=== PATIENT | female | born 1990 | race Caucasian/White ===

== ENCOUNTER 2016-09-14 15:10 | Emergency (ER) | payer OTHER ==
[2016-09-14] MEDS ORDERED: KETOROLAC 60 MG/2 ML VIAL IM STA (15:58)
[2016-09-14] MEDS ORDERED: DEXAMETHASONE 10 MG/ML VIAL PO STA (15:58)
[2016-09-14] MEDS ORDERED: DEXAMETHASONE 10 MG/ML VIAL ONE (16:02)
[2016-09-14] MEDS ORDERED: KETOROLAC 60 MG/2 ML VIAL ONE (16:02)
[2016-09-14] MEDS ORDERED: CHERRY SYRUP 10 ML UDC PO ONE (16:02)
== END 2016-09-14 16:20 | disposition home or self-care (01) ==
DX: M54.41 Lumbago with sciatica, right side (principal); G89.29 Other chronic pain
CPT/HCPCS: 96372; 99283; A9270

== ENCOUNTER 2016-09-21 19:01 | Emergency (ER) | payer OTHER ==
[2016-09-21] MEDS ORDERED: KETOROLAC 60 MG/2 ML VIAL IM STA (19:23)
[2016-09-21] MEDS ORDERED: HYDROmorphone 1 MG/ML SYRINGE IM STA (19:23)
[2016-09-21] MEDS ORDERED: KETOROLAC 60 MG/2 ML VIAL ONE (19:27)
[2016-09-21] MEDS ORDERED: HYDROmorphone 1 MG/ML SYRINGE ONE (19:27)
== END 2016-09-21 19:40 | disposition home or self-care (01) ==
DX: M54.5 Low back pain (principal); G89.29 Other chronic pain; R03.0 Elevated blood-pressure reading, without diagnosis of hypertension
CPT/HCPCS: 96372; 99283; 99284; J1170

== ENCOUNTER 2017-05-03 07:50 | Emergency (ER) | payer OTHER ==
[2017-05-03 08:02] VITALS: BP 121/86
[2017-05-03] MEDS ORDERED: IBUPROFEN 800 MG TABLET PO STA (08:23)
[2017-05-03] MEDS ORDERED: IBUPROFEN 800 MG TABLET PO ONE (08:30)
--- NOTE | 2017-05-03 08:36 | ED Physician Documentation ---
PD HPI NECK PAIN - Stated complaint Stated Complaint: NECK/BACK PX - Chief complaint Chief Complaint: General - History obtained from History obtained from: Patient - History of Present Illness Timing - onset: Last night Timing - details: Still present Location: Right Quality: Spasm Associated symptoms: No: Fever, Weakness, Numbness Worsened by: Movement, Palpation Similar symptoms before: No diagnosis (History of similar symptoms in the past but not this bad before.) - Additional information Additional information: The patient is a 26-year-old female who presents with right neck and shoulder pain that started last night and persists this morning. She denies any traumatic injury, but states the pain started after she had been bending over for long period of time working on a headlight of her car. She is right-hand dominant. She denies fever, headache, numbness or weakness. Past medical history is significant for lumbar discectomy. Review of Systems Constitutional: denies: Fever Ears: denies: Tinnitus/ringing Nose: denies: Congestion Throat: denies: Sore throat Cardiac: denies: Chest pain / pressure Respiratory: denies: Dyspnea, Cough GI: denies: Abdominal Pain, Nausea, Vomiting : denies: Dysuria Skin: denies: Rash Musculoskeletal: reports: Neck pain, Extremity pain (Right shoulder). 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 : None Musculoskeletal: Chronic back pain - Past Surgical History Past Surgical History: Yes - Present Medications Home Medications: Ambulatory Orders Medication Instructions Recorded Confirmed Cyclobenzaprine [Flexeril] 10 mg PO TID PRN #20 tablet 09/14/16 Meloxicam [Mobic] 15 mg PO DAILY PRN #20 tablet 09/14/16 Oxycodone HCl/Acetaminophen 1 - 2 each PO Q6H PRN #14 tablet 09/14/16 [Percocet 5-325 mg Tablet] diazePAM [Valium] 5 mg PO TID PRN #15 tablet 09/21/16 Cyclobenzaprine [Flexeril] 10 mg PO TID PRN #20 tablet 05/03/17 HYDROcod/ACETAM 5/325 [Vicodin 1 - 2 ea PO Q6H PRN #15 tablet 05/03/17 5/325] - Allergies Allergies/Adverse Reactions: Allergies Allergy/AdvReac Type Severity Reaction Status Date / Time No Known Drug Allergies Allergy Verified 05/03/17 08:02 - Social History Does the pt smoke?: No Smoking Status: Never smoker Does the pt drink ETOH?: Yes Does the pt have substance abuse?: No - Immunizations Immunizations are current?: No Immunizations: TDAP >10years/unknown - POLST Patient has POLST: No PD ED PE NORMAL - Vitals Vital signs reviewed: Yes (Normal) - General General: Alert and oriented X 3, Well developed/nourished - HEENT HEENT: Atraumatic, Pharynx benign - Neck Neck: Supple, no meningeal sign, No bony TTP, No JVD, Other (Tenderness to palpation over the right trapezius musculature.) - Cardiac Cardiac: RRR, No murmur - Respiratory Respiratory: No respiratory distress, Clear bilaterally - Abdomen Abdomen: Soft, Non tender - Back Back: No CVA TTP, No spinal TTP - Derm Derm: No rash - Extremities Extremities: No edema, Other (Tenderness to palpation over the right trapezius musculature. She has limited active range of motion secondary to pain, but the right shoulder can be passively elevated through full range of motion. Distal neurovascular is intact.) - Neuro Neuro: Alert and oriented X 3, No motor deficit, No sensory deficit Results - Vitals Vitals: Vital Signs - 24 hr 05/03/17 07:59 Temperature 36.2 C L Heart Rate 72 Respiratory 18 Rate Blood Pressure 121/86 H Oxygen O2 Source Room air PD MEDICAL DECISION MAKING - ED course Complexity details: considered differential, d/w patient ED course: The patient's presentation is most consistent with right trapezius muscle strain. Her presentation does not suggest meningitis, cervical discectomy, or bony abnormality. Treatment in the emergency department included application of a right arm sling, and administration of ibuprofen 800 mg orally. She is being discharged with prescriptions for Flexeril and for Vicodin, 15 tablets. I discussed with her the expected course of illness, symptomatic treatment and outpatient follow-up, as well as potentially worrisome signs or symptoms that should prompt reevaluation in the emergency department. Departure - Departure Disposition: 01 Home, Self Care Clinical Impression: Strain of right trapezius muscle Qualifiers: Encounter type: initial encounter Qualified Code(s): S46.811A - Strain of other muscles, fascia and tendons at shoulder and upper arm level, right arm, initial encounter Condition: Stable Instructions: ED Strain Muscle Ext Follow-Up: Srinivasan Lund MD [Primary Care Provider] - Prescriptions: Cyclobenzaprine [Flexeril] 10 mg PO TID PRN #20 tablet PRN Reason: Spasms HYDROcod/ACETAM 5/325 [Vicodin 5/325] 1 - 2 ea PO Q6H PRN #15 tablet PRN Reason: Pain Comments: Use the arm sling if it provides comfort. Apply ice pack to the right trapezius musculature intermittently for the next 2 or 3 days. Continue using ibuprofen, up to 800 mg 3 times daily for its anti-inflammatory effect. He can use Vicodin as prescribed if needed for pain. You can use Flexeril as prescribed if needed for muscle spasms. Let pain be your guide to activity level. Follow-up with your primary physician within 2 weeks. Call to schedule an appointment. Return to the emergency department if you develop increasing pain, or otherwise worsening symptoms. Forms: Activity restrictions
== END 2017-05-03 08:48 | disposition home or self-care (01) ==
LOC: ED 07:50
DX: S46.811A Strain of other muscles, fascia and tendons at shoulder and upper arm level, right arm, initial encounter (principal); X50.1XXA Overexertion from prolonged static or awkward postures, initial encounter
CPT/HCPCS: 99283; A9270

== ENCOUNTER 2017-10-18 11:27 | Emergency (ER) | payer OTHER ==
--- NOTE | 2017-10-18 14:22 | ED Physician Documentation ---
History of Present Illness - Stated complaint Stated Complaint: HEAD INJ - Chief complaint Chief Complaint: Trauma Hd/Nk - Additonal information Additional information: 27 f was working at [employer] dog pushed her over backward and her head hit a brick wall no sig LOC has a HAMPTON no neck pain no numbness weakness no vomiting Review of Systems : reports: LMP (10/06/17) Musculoskeletal: denies: Neck pain Neurologic: reports: Headache, Head injury. 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 : None Musculoskeletal: Chronic back pain - Past Surgical History Past Surgical History: Yes - Present Medications Home Medications: Ambulatory Orders Medication Instructions Recorded Confirmed Cyclobenzaprine [Flexeril] 10 mg PO TID PRN #20 tablet 09/14/16 Meloxicam [Mobic] 15 mg PO DAILY PRN #20 tablet 09/14/16 Oxycodone HCl/Acetaminophen 1 - 2 each PO Q6H PRN #14 tablet 09/14/16 [Percocet 5-325 mg Tablet] Cyclobenzaprine [Flexeril] 10 mg PO TID PRN #20 tablet 05/03/17 HYDROcod/ACETAM 5/325 [Vicodin 1 - 2 ea PO Q6H PRN #15 tablet 05/03/17 5/325] - Allergies Allergies/Adverse Reactions: Allergies Allergy/AdvReac Type Severity Reaction Status Date / Time No Known Drug Allergies Allergy Verified 05/03/17 08:02 - Social History Does the pt smoke?: No Smoking Status: Never smoker Does the pt drink ETOH?: Yes Does the pt have substance abuse?: No - Immunizations Immunizations are current?: No Immunizations: TDAP >10years/unknown - POLST Patient has POLST: No PD ED PE NORMAL - Vitals Vital signs reviewed: Yes - General General: Alert and oriented X 3 - HEENT HEENT: PERRL. No: Atraumatic (soft tissue swelling and TTP occiput just left of midline s step off or crepitus or lac) - Neck Neck: No bony TTP - Cardiac Cardiac: RRR - Respiratory Respiratory: No respiratory distress, Clear bilaterally - Derm Derm: Normal color - Neuro Neuro: Alert and oriented X 3 Eye Opening: Spontaneous Motor: Obeys Commands Verbal: Oriented GCS Score: 15 Results - Vitals Vitals: Vital Signs - 24 hr 10/18/17 11:35 Temperature 36.6 C Heart Rate 60 Respiratory 16 Rate Blood Pressure 112/69 O2 Saturation 99 Oxygen O2 Source Room air PD MEDICAL DECISION MAKING - ED course ED course: explained why I do not deel a CT is needed pt is fine with that says her HAMPTON is only a 1/10 and she is just here because the injury happened on the job and she needs L&I done Departure - Departure Disposition: 01 Home, Self Care Clinical Impression: Head injury Qualifiers: Encounter type: initial encounter Qualified Code(s): S09.90XA - Unspecified injury of head, initial encounter Condition: Good Instructions: ED Head Injury Closed Sleep Mon Comments: Please read over the head injury precautions and return if worse Else motrin tylenol and ice as needed for the pain Forms: Activity restrictions
[2017-10-18 14:25] VITALS: BP 118/74
== END 2017-10-18 14:24 | disposition home or self-care (01) ==
LOC: ED 11:27
DX: S09.90XA Unspecified injury of head, initial encounter (principal); W54.1XXA Struck by dog, initial encounter; Y99.0 Civilian activity done for income or pay
CPT/HCPCS: 1040M; 99283

== ENCOUNTER 2018-01-25 08:03 | Emergency (ER) | payer OTHER ==
--- NOTE | 2018-01-25 08:14 | ED Physician Documentation ---
PD HPI MHE - Stated complaint Stated Complaint: MHE - History obtained from History obtained from: Patient - History of Present Illness Primary symptom: Anxiety (was driving to work and felt anxious, tearful and shaky. Thought she was having panic attack. Her spouse had told her she wanted to separate yesterday, so patient was thinking of that. She had had another similar episode while on vacation in [place] and was seen by mental health program manager there when her friends called for help. She has not brought to the hospital but did have EMS evaluation with normal heart rate vital signs and blood sugar at the time according to the patient. She calmed after half hour to an hour. She has not had anxiety since that time and that was about a month ago. She has been having feelings of intermittent lightheadedness and feeling slightly off balance particularly with getting up or after squatting. She has had this for about a month or so and has been getting increasing knee frequent. She called for an appointment with her primary care and has that on Saturday (in 2 days).) Timing - onset: Today (15 minutes ago and was driving by ER on way to work, so stopped in to get evaluation.) Contributing factors: Sig other. No: Substance abuse - ETOH, Substance abuse - drugs Similar symptoms before: No diagnosis Recently seen: Not recently seen (has appt with PCP Saturday for separate issue of intermittent feeling off balance and room moving, lasting seconds at a time, then better. No change in hearing. No congestion noted.) Review of Systems Constitutional: denies: Fever, Chills, Fatigue Eyes: denies: Loss of vision, Decreased vision, Photophobia Ears: denies: Drainage/discharge, Tinnitus/ringing Nose: denies: Rhinorrhea / runny nose, Congestion Throat: denies: Sore throat Cardiac: denies: Chest pain / pressure, Palpitations, Pedal edema, Calf pain Respiratory: denies: Dyspnea, Cough GI: denies: Nausea, Vomiting, Diarrhea : reports: Frequency. 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 Living Arrangement: reports: At home - Social History Does the pt smoke?: No Smoking Status: Never smoker Does the pt drink ETOH?: Yes ETOH Use: Other (occasional) Does the pt have substance abuse?: No - Immunizations Immunizations are current?: No Immunizations: TDAP >10years/unknown - POLST Patient has POLST: No PD ED PE NORMAL - Vitals Vital signs reviewed: Yes - General General: Alert and oriented X 3, Well developed/nourished, Other (tearful and sad, but conversant and pleasant. Talks freely. Calms and smiles after talking few minutes. ) - HEENT HEENT: Ears normal, Pharynx benign - Neck Neck: Supple, no meningeal sign, No adenopathy, Thyroid normal - Cardiac Cardiac: RRR, No murmur - Respiratory Respiratory: Clear bilaterally - Abdomen Abdomen: Soft, Non tender - Female Female : Deferred - Rectal Rectal: Deferred - Back Back: No CVA TTP - Derm Derm: Normal color, Warm and dry, No rash - Extremities Extremities: No deformity - Neuro Neuro: Alert and oriented X 3, No motor deficit, Normal speech - Psych Psych: Normal mood. No: Normal affect (sad and tearful. denies suicidal ideation. ) Results - Vitals Vitals: Vital Signs - 24 hr 01/25/18 01/25/18 08:08 10:20 Temperature 37.0 C 37.0 C Heart Rate 86 84 Respiratory 22 18 Rate Blood Pressure 125/89 H 118/84 H O2 Saturation 100 100 Oxygen O2 Source Room air - Labs Labs: Laboratory Tests 01/25/18 01/25/18 01/25/18 08:10 09:01 09:01 WBC 5.5 RBC 4.55 Hgb 14.2 Hct 40.6 MCV 89.1 MCH 31.2 H MCHC 35.0 RDW 12.8 Plt Count 208 MPV 8.3 Neut # (Auto) 3.6 Lymph # (Auto) 1.3 L [place] # (Auto) 0.5 Eos # (Auto) 0.0 Baso # (Auto) 0.0 Absolute Nucleated RBC 0.00 Nucleated RBC % 0.0 ESR Sodium 137 Potassium 4.0 Chloride 106 Carbon Dioxide 25 Anion Gap 6.0 BUN 11 Creatinine 0.8 Estimated GFR (MDRD) 87 L Glucose 79 Calcium 9.3 Total Bilirubin 1.0 AST 20 ALT 15 Alkaline Phosphatase 28 L Total Protein 7.1 Albumin 4.2 Globulin 2.9 Albumin/Globulin Ratio 1.4 Lipase 26 TSH Urine Color YELLOW Urine Clarity CLEAR Urine pH 6.5 Ur Specific Howe 1.020 Urine Protein NEGATIVE Urine Glucose (UA) NEGATIVE Urine Ketones NEGATIVE Urine Occult Blood NEGATIVE Urine Nitrite NEGATIVE Urine Bilirubin NEGATIVE Urine Urobilinogen 0.2 (NORMAL) Ur Leukocyte Esterase NEGATIVE Ur Microscopic Review NOT INDICATED Urine Culture Comments NOT INDICATED 01/25/18 01/25/18 09:01 09:01 WBC RBC Hgb Hct MCV MCH MCHC RDW Plt Count MPV Neut # (Auto) Lymph # (Auto) [place] # (Auto) Eos # (Auto) Baso # (Auto) Absolute Nucleated RBC Nucleated RBC % ESR 1 Sodium Potassium Chloride Carbon Dioxide Anion Gap BUN Creatinine Estimated GFR (MDRD) Glucose Calcium Total Bilirubin AST ALT Alkaline Phosphatase Total Protein Albumin Globulin Albumin/Globulin Ratio Lipase TSH 1.36 Urine Color Urine Clarity Urine pH Ur Specific Howe Urine Protein Urine Glucose (UA) Urine Ketones Urine Occult Blood Urine Nitrite Urine Bilirubin Urine Urobilinogen Ur Leukocyte Esterase Ur Microscopic Review Urine Culture Comments PD MEDICAL DECISION MAKING - ED course Complexity details: reviewed results, considered differential (sounding like anxiety attack with some hyperventilation this morning and is improving. Talked with her and she gets counseling currently but her counselor is older and patient feels she does not understand her issues. Can give her list of other counseling groups to see if she can change providers for counseling. Talked with her and can do some basic metabolic testing/labs regarding the lightheaded/ vertigo episodes. Then to have her see PCP Saturday as planned. Consider intermittent rhythm disturbance and whether Holter might be of value. NSR and regular vitals here. ), d/w patient - Sepsis Event Vital Signs: Vital Signs - 24 hr 01/25/18 01/25/18 08:08 10:20 Temperature 37.0 C 37.0 C Heart Rate 86 84 Respiratory 22 18 Rate Blood Pressure 125/89 H 118/84 H O2 Saturation 100 100 Oxygen O2 Source Room air Departure - Departure Disposition: 01 Home, Self Care Clinical Impression: Anxiety, Intermittent vertigo Condition: Stable Record reviewed to determine appropriate education?: Yes Instructions: ED Stress React, ED Vertigo Unspecified Follow-Up: [facility] [Provider Group] Prescriptions: Cetirizine [ZyrTEC] 10 mg PO DAILY #20 tablet Dexamethasone [Decadron] 4 mg PO DAILY #5 tablet Comments: Your basic blood tests appear normal here. The thyroid screen has not resulted yet and may take a little bit longer this morning. Your primary care can follow up with that on Saturday. Suggest continuing counseling regarding stress response and life situations. Regarding the intermittent vertigo or movement feelings, this might come from the inner ear if we could try an antihistamine and mild steroid medicine for a few days in case it is some inflammation in the inner ear or sinuses. We could see how much improvement you get with that. Follow-up with your primary care Saturday as planned otherwise. Discharge Date/Time: 01/25/18 10:20
[2018-01-25 08:57] LABS: BILIRUBIN,URINE NEGATIVE (NEGATIVE); GLUCOSE, URINE (UA) NEGATIVE (NEGATIVE); KETONES,URINE (UA) NEGATIVE (NEGATIVE); LEUKOCYTE ESTERASE, URINE NEGATIVE (NEGATIVE); NITRITE,URINE NEGATIVE (NEGATIVE); OCCULT BLOOD,URINE NEGATIVE (NEGATIVE); PH,URINE 6.5 PH (5.0-7.5); PROTEIN,URINE NEGATIVE (NEGATIVE); UROBILINOGEN,URINE 0.2 (NORMAL) E.U./dL (NORMAL)
[2018-01-25 09:01] LABS: CLARITY,URINE CLEAR (CLEAR)
[2018-01-25 09:07] LABS: BASOPHILS % (AUTO) 0.9 %; EOSINOPHILS % (AUTO) 0.8 %; HGB - HEMOGLOBIN 14.2 g/dL (12.0-16.0); LYMPHOCYTES # (AUTO) 1.3 10^3/uL (1.5-3.5); LYMPHOCYTES % (AUTO) 23.9 %; MEAN CORPUSCULAR HEMOGLOBIN 31.2 pg (27.0-31.0); MEAN CORPUSCULAR VOLUME 89.1 fL (81.0-99.0); MEAN PLATELET VOLUME 8.3 fL (7.9-10.8); MONOCYTES # (AUTO) 0.5 10^3/uL (0.0-1.0); MONOCYTES % (AUTO) 9.6 %; NEUTROPHILS # (AUTO) 3.6 10^3/uL (1.5-6.6); NEUTROPHILS % (AUTO) 64.8 %; PLT - PLATELET COUNT 208 10^3/uL (130-450); RED BLOOD COUNT 4.55 10^6/uL (4.20-5.40); RED CELL DISTRIBUTION WIDTH 12.8 % (12.0-15.0); WHITE BLOOD COUNT 5.5 x10^3/uL (4.8-10.8)
[2018-01-25 09:24] LABS: ALBUMIN 4.2 g/dL (3.2-5.5); ALBUMIN/GLOBULIN RATIO 1.4 (1.0-2.2); CALCIUM 9.3 mg/dL (8.5-10.3); CREATININE 0.8 mg/dL (0.4-1.0); TOTAL PROTEIN 7.1 g/dL (6.7-8.2)
[2018-01-25 10:34] VITALS: BP 118/84
== END 2018-01-25 10:20 | disposition home or self-care (01) ==
LOC: ED 08:03
DX: F41.9 Anxiety disorder, unspecified (principal); R42 Dizziness and giddiness
CPT/HCPCS: 36415; 80053; 81001; 81003; 82652; 83690; 84443; 85025; 85651; 87086; 99283

== ENCOUNTER 2018-07-10 14:14 | Emergency (ER) | payer OTHER ==
--- NOTE | 2018-07-10 14:30 | ED Physician Documentation ---
History of Present Illness - Stated complaint Stated Complaint: EAR PX, THROAT PX, NAUSEA - Chief complaint Chief Complaint: General - History obtained from History obtained from: Patient - History of Present Illness Timing: Yesterday (Previously healthy 28-year-old with severe sore throat for a day and right ear pain without diminished hearing. She has had sneezing but not coughing. No fevers.) Review of Systems Ten Systems: 10 systems reviewed and negative Constitutional: denies: Fever, Chills Ears: reports: Ear pain. denies: Loss of hearing, Drainage/discharge Nose: reports: Rhinorrhea / runny nose, Congestion. 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 Musculoskeletal: Chronic back pain - Past Surgical History Past Surgical History: Yes - Present Medications Home Medications: Ambulatory Orders Medication Instructions Recorded Confirmed Guaifenesin/Pseudoephedrne HCl 1 each PO BID PRN #20 tab.er.12h 07/10/18 [Mucinex D ER 600-60 mg Tablet] - Allergies Allergies/Adverse Reactions: Allergies Allergy/AdvReac Type Severity Reaction Status Date / Time No Known Drug Allergies Allergy Verified 07/10/18 14:22 - Social History Does the pt smoke?: No Smoking Status: Never smoker Does the pt drink ETOH?: Yes Does the pt have substance abuse?: No - Immunizations Immunizations are current?: No Immunizations: TDAP >10years/unknown - POLST Patient has POLST: No PD ED PE NORMAL - Vitals Vital signs reviewed: Yes - General General: Alert and oriented X 3, No acute distress - HEENT HEENT: PERRL, EOMI, Ears normal, Pharynx benign (mild redness of tonsillar pillars, but no swelling or exudate.) - Neck Neck: Supple, no meningeal sign, No bony TTP, No adenopathy - Neuro Neuro: Alert and oriented X 3, therapeutic support staff 2-12 intact Eye Opening: Spontaneous Motor: Obeys Commands Verbal: Oriented GCS Score: 15 - Psych Psych: Normal mood, Normal affect Results - Vitals Vitals: Vital Signs - 24 hr 07/10/18 14:21 Temperature 36.4 C L Heart Rate 57 L Respiratory 14 Rate Blood Pressure 118/76 O2 Saturation 99 Oxygen O2 Source Room air - Labs Labs: Laboratory Tests 07/10/18 14:40 Group A Strep Rapid Negative Departure - Departure Disposition: 01 Home, Self Care Clinical Impression: Viral URI Condition: Good Record reviewed to determine appropriate education?: Yes Instructions: ED URI Viral Prescriptions: Guaifenesin/Pseudoephedrne HCl [Mucinex D ER 600-60 mg Tablet] 1 each PO BID PRN #20 tab.er.12h PRN Reason: congestion Comments: Drink plenty of fluids, ibuprofen as needed for pain. Follow-up with your doctor next week if not better. Return for new or worsening symptoms.
[2018-07-10] MEDS ORDERED: PSEUDOEPHEDRINE 30 MG TABLET PO STA (15:00)
[2018-07-10] MEDS ORDERED: guaiFENesin 600 MG TABLET PO STA (15:00)
[2018-07-10 15:27] VITALS: BP 118/72
== END 2018-07-10 15:26 | disposition home or self-care (01) ==
LOC: ED 14:14
DX: J06.9 Acute upper respiratory infection, unspecified (principal); B97.89 Other viral agents as the cause of diseases classified elsewhere
CPT/HCPCS: 87070; 87430; 99282; 99283; A9270

== ENCOUNTER 2018-11-12 09:11 | Emergency (ER) | payer OTHER ==
[2018-11-12] MEDS ORDERED: ONDANSETRON ODT 4 MG TABLET TL STA (11:03)
[2018-11-12] MEDS ORDERED: KETOROLAC 60 MG/2 ML VIAL IM STA (11:03)
[2018-11-12] MEDS ORDERED: DEXAMETHASONE 10 MG/ML VIAL PO STA (11:03)
--- NOTE | 2018-11-12 11:05 | ED Physician Documentation ---
PD HPI NECK PAIN - Stated complaint Stated Complaint: NECK PAIN - Chief complaint Chief Complaint: Back Pain - History obtained from History obtained from: Patient, Friend - History of Present Illness Timing - onset: Today Timing - duration: Hours Timing - details: Abrupt onset, Still present Location: Mid, Lower Quality: Pain, Spasm, Sharp Associated symptoms: No: Fever, Weakness, Numbness, Incontinent of urine, Unable to urinate, Hematuria, Incontinent of stool Improves with: Rest, Position Worsened by: Movement Similar symptoms before: Has not had sx before Recently seen: Not recently seen - Additional information Additional information: 28-year-old female with a prior history of lumbar disc disease status post surgery has developed acute neck stiffness with radiation of pain up into her head and a headache. She has some nausea this been present for the past week. She awoke this morning with this neck stiffness and pain. She denies any recent illness she denies any vomiting. She has been sleeping in a different bed for the past week. She denies any chance of indicating that she is lesbian. Review of Systems Constitutional: denies: Fever Eyes: denies: Decreased vision Ears: denies: Ear pain Nose: denies: Rhinorrhea / runny nose, Congestion Throat: denies: Sore throat Cardiac: denies: Chest pain / pressure, Palpitations Respiratory: denies: Dyspnea, Cough GI: reports: Nausea. denies: Abdominal Pain, Vomiting, Constipation, Diarrhea : denies: Dysuria, Frequency Skin: denies: Rash Musculoskeletal: reports: Neck pain. 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 Musculoskeletal: Chronic back pain - Past Surgical History Past Surgical History: Yes - Present Medications Home Medications: Ambulatory Orders Medication Instructions Recorded Confirmed Guaifenesin/Pseudoephedrne HCl 1 each PO BID PRN #20 tab.er.12h 07/10/18 [Mucinex D ER 600-60 mg Tablet] Cyclobenzaprine [Flexeril] 10 mg PO TID PRN #20 tablet 11/12/18 Hydrocodone/Acetaminophen 1 - 2 each PO Q6H PRN #14 tablet 11/12/18 [Hydrocodon-Acetaminophen 5-325] - Allergies Allergies/Adverse Reactions: Allergies Allergy/AdvReac Type Severity Reaction Status Date / Time No Known Drug Allergies Allergy Verified 11/12/18 09:45 - Social History Does the pt smoke?: No Smoking Status: Never smoker Does the pt drink ETOH?: Yes Does the pt have substance abuse?: No - Immunizations Immunizations are current?: No Immunizations: TDAP >10years/unknown - POLST Patient has POLST: No PD ED PE NORMAL - Vitals Vital signs reviewed: Yes (hypertensive ) - General General: Alert and oriented X 3, Well developed/nourished - HEENT HEENT: Atraumatic, PERRL, EOMI - Neck Neck: Supple, no meningeal sign, No bony TTP, Other (There is tenderness to the paraspinous muscles of the neck bilaterally extending to the occiput. She moves her neck very slowly and appears to be in pain. ) - Respiratory Respiratory: No respiratory distress - Derm Derm: Normal color, Warm and dry, No rash - Extremities Extremities: No deformity, No edema - Neuro Neuro: Alert and oriented X 3, advisor consultant 2-12 intact, No motor deficit, No sensory deficit, Normal speech Eye Opening: Spontaneous Motor: Obeys Commands Verbal: Oriented GCS Score: 15 - Psych Psych: Normal mood, Normal affect Results - Vitals Vitals: Vital Signs - 24 hr 11/12/18 09:42 Temperature 36.3 C L Heart Rate 83 Respiratory 18 Rate Blood Pressure 121/88 H O2 Saturation 100 Oxygen O2 Source Room air PD MEDICAL DECISION MAKING - ED course Complexity details: reviewed results, re-evaluated patient, considered differential, d/w patient, d/w family ED course: 28-year-old female with a stiff neck this morning is administered dexamethasone 10 mg orally and Toradol 30 mg IM. She is administered Zofran as well for the nausea. I discussed with the patient the natural history of disc disease and I do suspect that this is a musculoskeletal injury. We talked about imaging and the lack of utility of CT scanning. I have indicated to the patient that scanning with MRI would be appropriate if her pain does not resolve within the month. Departure - Departure Disposition: 01 Home, Self Care Clinical Impression: Cervical myofascial strain Qualifiers: Encounter type: initial encounter Qualified Code(s): S16.1XXA - Strain of muscle, fascia and tendon at neck level, initial encounter Condition: Stable Instructions: ED Spasm Neck No Injury Follow-Up: CHARLOTTE Linder [Provider Group] Prescriptions: Cyclobenzaprine [Flexeril] 10 mg PO TID PRN #20 tablet PRN Reason: Spasms Hydrocodone/Acetaminophen [Hydrocodon-Acetaminophen 5-325] 1 - 2 each PO Q6H PRN #14 tablet PRN Reason: pain Forms: Activity restrictions
[2018-11-12] MEDS ORDERED: HYDROmorphone 1 MG/ML CARPUJECT IM STA (11:42)
[2018-11-12 12:27] VITALS: BP 118/86
== END 2018-11-12 12:19 | disposition home or self-care (01) ==
LOC: ED 09:11
DX: S16.1XXA Strain of muscle, fascia and tendon at neck level, initial encounter (principal)
CPT/HCPCS: 96372; 99283; J1170; Q0162

== ENCOUNTER 2018-12-20 02:35 | Outpatient (CLI) | payer OTHER | END 2018-12-20 02:36 | disposition critical access hospital (66) | LOC: EMS 02:35 | PROVIDERS: ATTEND Surgery | DX: R55 Syncope and collapse (principal); R11.10 Vomiting, unspecified | CPT/HCPCS: A0425; A0427 ==

== ENCOUNTER 2018-12-20 02:54 | Emergency (ER) | payer OTHER ==
[2018-12-20] MEDS ORDERED: ONDANSETRON 4 MG/2 ML VIAL IVP STA ×2 (03:05→05:05)
[2018-12-20] MEDS ORDERED: SODIUM CHLORIDE 0.9% 1,000 ML IV ONE (03:05)
--- NOTE | 2018-12-20 03:06 | ED Physician Documentation ---
PD HPI ALTERED MENTAL STATUS - Stated complaint Stated Complaint: ETOH, AMS - Chief complaint Chief Complaint: Neuro - History obtained from History obtained from: Patient, Friend, EMS - History of Present Illness Timing - onset: Today Timing - duration: Minutes Timing - details: Gradual onset, Still present Quality / character: Less responsive, Disoriented Associated symptoms: NVD. No: Fever, Headache, Stiff neck, Dyspnea, Cough Contributing factors: Intoxicated [place] status: Alert and oriented X 3, Ambulatory, Independent Similar symptoms before: Has not had sx before Recently seen: Not recently seen - Additional information Additional information: 28-year-old female has gone out with her friends this evening to drink and she did not have much to eat she was drinking prior to the get together with her friends and she is now become intoxicated enough that her friends are not able to arouse her and they called the ambulance. She said some vomiting she does appear to protect her airway she has had some improvement in the vomiting with some Zofran.The patient at the time of admission to the emergency department is not able to provide history herself. 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 Musculoskeletal: Chronic back pain - Past Surgical History Past Surgical History: Yes - Present Medications Home Medications: Ambulatory Orders Medication Instructions Recorded Confirmed Guaifenesin/Pseudoephedrne HCl 1 each PO BID PRN #20 tab.er.12h 07/10/18 [Mucinex D ER 600-60 mg Tablet] Cyclobenzaprine [Flexeril] 10 mg PO TID PRN #20 tablet 11/12/18 Hydrocodone/Acetaminophen 1 - 2 each PO Q6H PRN #14 tablet 11/12/18 [Hydrocodon-Acetaminophen 5-325] - Allergies Allergies/Adverse Reactions: Allergies Allergy/AdvReac Type Severity Reaction Status Date / Time No Known Drug Allergies Allergy Verified 11/12/18 09:45 - Social History Does the pt smoke?: No Smoking Status: Never smoker Does the pt drink ETOH?: Yes Does the pt have substance abuse?: No - Immunizations Immunizations are current?: No Immunizations: TDAP >10years/unknown - POLST Patient has POLST: No PD ED PE NORMAL - Vitals Vital signs reviewed: Yes (normal ) - General General: No acute distress, Well developed/nourished - HEENT HEENT: Atraumatic, PERRL, EOMI - Neck Neck: Supple, no meningeal sign, No bony TTP - Cardiac Cardiac: RRR, No murmur - Respiratory Respiratory: No respiratory distress, Clear bilaterally - Abdomen Abdomen: Soft, Non tender - Back Back: No CVA TTP, No spinal TTP - Derm Derm: Normal color, Warm and dry, No rash - Neuro Neuro: No motor deficit, No sensory deficit, Normal speech Eye Opening: Spontaneous Motor: Obeys Commands Verbal: Confused GCS Score: 14 - Psych Psych: Normal mood, Normal affect Results - Vitals Vitals: Vital Signs - 24 hr 12/20/18 12/20/18 12/20/18 02:54 03:03 04:00 Temperature 35.7 C L 36.3 C L Heart Rate 74 78 74 Respiratory 18 16 Rate Blood Pressure 97/66 104/65 114/72 O2 Saturation 98 100 99 Oxygen O2 Source Room air - Labs Labs: Laboratory Tests 12/20/18 12/20/18 12/20/18 03:10 03:10 03:55 WBC 6.6 RBC 4.17 L Hgb 13.1 Hct 37.4 MCV 89.7 MCH 31.4 H MCHC 35.0 RDW 13.1 Plt Count 224 MPV 8.3 Neut # (Auto) 4.1 Lymph # (Auto) 1.9 [place] # (Auto) 0.5 Eos # (Auto) 0.0 Baso # (Auto) 0.0 Absolute Nucleated RBC 0.00 Nucleated RBC % 0.0 Sodium 141 Potassium 3.4 L Chloride 110 Carbon Dioxide 21 Anion Gap 10.0 BUN 12 Creatinine 0.7 Estimated GFR (MDRD) 101 Glucose 117 H Calcium 8.4 L Total Bilirubin 0.8 AST 16 ALT 11 Alkaline Phosphatase 32 L Total Protein 6.7 Albumin 4.2 Globulin 2.5 Albumin/Globulin Ratio 1.7 Lipase 26 Urine Color Urine Clarity Urine pH Ur Specific [place] Urine Protein Urine Glucose (UA) Urine Ketones Urine Occult Blood Urine Nitrite Urine Bilirubin Urine Urobilinogen Ur Leukocyte Esterase Ur Microscopic Review Urine Culture Comments Urine HCG, Qual Urine Opiates Screen NEGATIVE Ur Oxycodone Screen NEGATIVE Urine Methadone Screen NEGATIVE Ur Propoxyphene Screen NEGATIVE Ur Barbiturates Screen NEGATIVE Ur Tricyclics Screen NEGATIVE Ur Phencyclidine Scrn NEGATIVE Ur Amphetamine Screen NEGATIVE U Methamphetamines Scrn NEGATIVE U Benzodiazepines Scrn NEGATIVE Urine Cocaine Screen NEGATIVE U Cannabinoids Screen POSITIVE H Ethyl Alcohol 103.8 12/20/18 03:55 WBC RBC Hgb Hct MCV MCH MCHC RDW Plt Count MPV Neut # (Auto) Lymph # (Auto) [place] # (Auto) Eos # (Auto) Baso # (Auto) Absolute Nucleated RBC Nucleated RBC % Sodium Potassium Chloride Carbon Dioxide Anion Gap BUN Creatinine Estimated GFR (MDRD) Glucose Calcium Total Bilirubin AST ALT Alkaline Phosphatase Total Protein Albumin Globulin Albumin/Globulin Ratio Lipase Urine Color YELLOW Urine Clarity CLEAR Urine pH 5.5 Ur Specific [place] 1.025 Urine Protein NEGATIVE Urine Glucose (UA) NEGATIVE Urine Ketones NEGATIVE Urine Occult Blood NEGATIVE Urine Nitrite NEGATIVE Urine Bilirubin NEGATIVE Urine Urobilinogen 0.2 (NORMAL) Ur Leukocyte Esterase NEGATIVE Ur Microscopic Review NOT INDICATED Urine Culture Comments NOT INDICATED Urine HCG, Qual NEGATIVE Urine Opiates Screen Ur Oxycodone Screen Urine Methadone Screen Ur Propoxyphene Screen Ur Barbiturates Screen Ur Tricyclics Screen Ur Phencyclidine Scrn Ur Amphetamine Screen U Methamphetamines Scrn U Benzodiazepines Scrn Urine Cocaine Screen U Cannabinoids Screen Ethyl Alcohol PD MEDICAL DECISION MAKING - ED course Complexity details: reviewed results, re-evaluated patient, considered differential, d/w patient, d/w family ED course: 28-year-old female has overindulged in alcohol she has become less responsive and here in the emergency department she is administered intravenous saline she does have some nausea and vomiting she improves her level of consciousness is able to ambulate in the emergency department and she is discharged into the care of her . Departure - Departure Disposition: 01 Home, Self Care Clinical Impression: Alcohol intoxication Qualifiers: Complication of substance-induced condition: uncomplicated Qualified Code(s): F10.920 - Alcohol use, unspecified with intoxication, uncomplicated Condition: Stable Instructions: ED Alcohol Intoxication Follow-Up: CHARLOTTE Linder [Provider Group]
[2018-12-20 03:18] LABS: BASOPHILS % (AUTO) 0.7 %; EOSINOPHILS % (AUTO) 0.5 %; HGB - HEMOGLOBIN 13.1 g/dL (12.0-16.0); LYMPHOCYTES # (AUTO) 1.9 10^3/uL (1.5-3.5); LYMPHOCYTES % (AUTO) 29.4 %; MEAN CORPUSCULAR HEMOGLOBIN 31.4 pg (27.0-31.0); MEAN CORPUSCULAR VOLUME 89.7 fL (81.0-99.0); MEAN PLATELET VOLUME 8.3 fL (7.9-10.8); MONOCYTES # (AUTO) 0.5 10^3/uL (0.0-1.0); MONOCYTES % (AUTO) 6.9 %; NEUTROPHILS # (AUTO) 4.1 10^3/uL (1.5-6.6); NEUTROPHILS % (AUTO) 62.5 %; PLT - PLATELET COUNT 224 10^3/uL (130-450); RED BLOOD COUNT 4.17 10^6/uL (4.20-5.40); RED CELL DISTRIBUTION WIDTH 13.1 % (12.0-15.0); WHITE BLOOD COUNT 6.6 x10^3/uL (4.8-10.8)
[2018-12-20 03:30] LABS: ALBUMIN 4.2 g/dL (3.2-5.5); ALBUMIN/GLOBULIN RATIO 1.7 (1.0-2.2); BILIRUBIN,TOTAL 0.8 mg/dL (0.2-1.0); CALCIUM 8.4 mg/dL (8.5-10.3); CREATININE 0.7 mg/dL (0.4-1.0); TOTAL PROTEIN 6.7 g/dL (6.7-8.2)
[2018-12-20 04:07] LABS: MUDS CUTOFF CONCENTRATIONS CUTOFF CONC BELOW:
[2018-12-20 04:19] LABS: BILIRUBIN,URINE NEGATIVE (NEGATIVE); GLUCOSE, URINE (UA) NEGATIVE (NEGATIVE); KETONES,URINE (UA) NEGATIVE (NEGATIVE); LEUKOCYTE ESTERASE, URINE NEGATIVE (NEGATIVE); NITRITE,URINE NEGATIVE (NEGATIVE); OCCULT BLOOD,URINE NEGATIVE (NEGATIVE); PH,URINE 5.5 PH (5.0-7.5); PROTEIN,URINE NEGATIVE (NEGATIVE); UROBILINOGEN,URINE 0.2 (NORMAL) E.U./dL (NORMAL)
[2018-12-20 04:23] LABS: CLARITY,URINE CLEAR (CLEAR); HCG UR QUAL NEGATIVE
[2018-12-20 04:32] LABS: AMPHETAMINE SCREEN,URINE NEGATIVE (NEGATIVE); BENZODIAZEPINES SCREEN, URINE NEGATIVE (NEGATIVE); COCAINE SCREEN URINE NEGATIVE (NEGATIVE); METHADONE SCREEN, URINE NEGATIVE (NEGATIVE); METHAMPHETAMINES SCREEN, URINE NEGATIVE (NEGATIVE); OPIATE SCREEN, URINE NEGATIVE (NEGATIVE); OXYCODONE SCREEN, URINE NEGATIVE (NEGATIVE); PROPOXYPHENE SCREEN, URINE NEGATIVE (NEGATIVE); TRICYCLIC ANTIDEPRESSANT,URINE NEGATIVE (NEGATIVE)
[2018-12-20 05:32] VITALS: BP 116/71
== END 2018-12-20 05:32 | disposition home or self-care (01) ==
LOC: EDUNIT# → ED 02:54
DX: F10.920 Alcohol use, unspecified with intoxication, uncomplicated (principal)
CPT/HCPCS: 36415; 80053; 80306; 80320; 81001; 81003; 81025; 83690; 85025; 87086; 96361; 96374; 96376; 99283

== ENCOUNTER 2019-04-19 10:52 | Emergency (ER) | payer OTHER ==
[2019-04-19 10:58] VITALS: BP 122/78
--- NOTE | 2019-04-19 11:18 | ED Physician Documentation ---
PD HPI UPPER EXT INJURY - Stated complaint Stated Complaint: RT FINGER SWELLING - Chief complaint Chief Complaint: Ext Problem - History obtained from History obtained from: Patient - History of Present Illness Location: Right, Finger Type of injury: Other (she had new ring on right finger and noted it starting to swelling and feel tight. Could not get it off.) Timing - onset: How many minutes ago (45), Today Timing - duration: Minutes (45) Improved by: No: Ice Worsened by: Moving, Palpating Associated symptoms: Swelling. 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 Musculoskeletal: Chronic back pain - Past Surgical History Past Surgical History: Yes - Present Medications Home Medications: Ambulatory Orders Medication Instructions Recorded Confirmed Guaifenesin/Pseudoephedrne HCl 1 each PO BID PRN #20 tab.er.12h 07/10/18 [Mucinex D ER 600-60 mg Tablet] Cyclobenzaprine [Flexeril] 10 mg PO TID PRN #20 tablet 11/12/18 Hydrocodone/Acetaminophen 1 - 2 each PO Q6H PRN #14 tablet 11/12/18 [Hydrocodon-Acetaminophen 5-325] - Allergies Allergies/Adverse Reactions: Allergies Allergy/AdvReac Type Severity Reaction Status Date / Time No Known Drug Allergies Allergy Verified 04/19/19 10:57 - Social History Does the pt smoke?: No Smoking Status: Never smoker Does the pt drink ETOH?: Yes Does the pt have substance abuse?: No - Immunizations Immunizations are current?: No Immunizations: TDAP >10years/unknown - POLST Patient has POLST: No PD ED PE NORMAL - Vitals Vital signs reviewed: Yes - General General: Alert and oriented X 3, No acute distress, Well developed/nourished - Derm Derm: Normal color, Warm and dry - Extremities Extremities: Other (right ring finger with ring on it, with tight skin just distal to the ring. Good sensation at tip as well as cap refill. ) - Neuro Neuro: Alert and oriented X 3, No motor deficit, No sensory deficit Results - Vitals Vitals: Vital Signs - 24 hr 04/19/19 10:55 Temperature 36.3 C L Heart Rate 82 Respiratory 19 Rate Blood Pressure 122/78 O2 Saturation 98 Oxygen O2 Source Room air PD MEDICAL DECISION MAKING - ED course Complexity details: re-evaluated patient (patient feeling okay with ring off. No other complaints. ), considered differential (ring removed by technical assistant.), d/w patient Departure - Departure Disposition: Home, Self Care Clinical Impression: Tight ring on finger Condition: Stable Record reviewed to determine appropriate education?: Yes Comments: Recheck if any problems later on with the finger. Discharge Date/Time: 04/19/19 11:23
== END 2019-04-19 11:23 | disposition home or self-care (01) ==
LOC: ED 10:52
DX: S60.444A External constriction of right ring finger, initial encounter (principal); W49.04XA Ring or other jewelry causing external constriction, initial encounter
CPT/HCPCS: 99281; 99282